=== PATIENT | male | born 1985 | race Two or more races ===

== ENCOUNTER 2016-11-28 13:08 | Emergency (ER) | payer OTHER ==
[~2016-11-28] VITALS: Ht 185.4 cm; Wt 84.4 kg
--- NOTE | 2016-11-28 13:18 | NUR ---
pt ambulatory to er bed 12. denies any medical complaint at this time. stating "i just want to see a psych social worker." denies SI/HI. pt is aao. cooperative. awaiting md brennan.
--- NOTE | 2016-11-28 13:28 | NUR ---
qasim at bedside for eval.
[2016-11-28 14:01] LABS: HEMATOCRIT 44 % (39-51); MEAN CORPUSCULAR HEMOGLOBIN 30 PG (26.0-33.0); MEAN CORPUSCULAR VOLUME 90 fL (80-96); RED BLOOD CELL COUNT(AUTO) 4.93 MIL/uL (4.5-6.0); WHITE BLOOD COUNT (AUTO) 4.4 K/uL (4.3-11.0)
[2016-11-28 14:02] LABS: BASOPHILS % (AUTO) 0.6 % (0.0-2.0); EOSINOPHILS % (AUTO) 0.6 % (0.0-6.0); LYMPHOCYTES # (AUTO) 1.2 /CMM (0.8-4.8); LYMPHOCYTES % (AUTO) 27.8 % (20.0-44.0); MEAN CORPUSCULAR HGB CONC 34 g/dl (31.0-36.0); MONOCYTES % (AUTO) 6.7 % (2.0-12.0); NEUTROPHILS # (AUTO) 2.8 /CMM (1.8-8.9); NEUTROPHILS % (AUTO) 64.3 % (43.0-81.0); PLATELET COUNT (AUTO) 228 /CMM (150-450); RDW COEFFICIENT OF VARIATION 12.5 (11.5-15.0)
[2016-11-28 14:03] LABS: MONOCYTES # (AUTO) 0.3 /CMM (0.1-1.30)
[2016-11-28 14:11] LABS: CALCIUM, SERUM 8.6 mg/dL (8.5-10.1); CARBON DIOXIDE 29 mmol/L (21-32); CHLORIDE 104 mmol/L (98-107); CREATININE 1.2 mg/dL (0.6-1.3); GLUCOSE 104 mg/dL (74-106); POTASSIUM 3.8 mmol/L (3.5-5.1); SODIUM SERUM 141 mmol/L (136-145); UREA NITROGEN, BLOOD 15 mg/dL (7-18)
[2016-11-28 14:13] LABS: APPEARANCE,URINE Clear (CLEAR); BILIRUBIN,URINE Negative (NEGATIVE); BLOOD, URINE Trace-intact Ery/uL (NEGATIVE); COLOR,URINE Yellow (YELLOW); KETONES,URINE Negative (NEGATIVE); LEUKOCYTE ESTERASE ,URINE Negative (NEGATIVE); NITRITE, URINE Negative (NEGATIVE); PH,URINE 6.5 (5.0-8.0); PROTEIN,URINE Negative (NEGATIVE); UGLUCOSE Negative (NEGATIVE)
[2016-11-28 14:20] LABS: BACTERIA,URINE Rare /HPF (None Seen); SQUAMOUS EPITHELIAL CELL,UR Rare /HPF (None Seen); WBC,URINE 0-2 /HPF (0-3)
[2016-11-28 14:25] LABS: ALANINE AMINOTRANSFERASE 16 U/L (12-78); ALKALINE PHOSPHATASE 106 U/L (46-116); ASPARTATE AMINOTRANSFERASE 20 U/L (15-37); BILIRUBIN,DIRECT 0.1 mg/dL (0.0-0.2); BILIRUBIN,TOTAL 0.5 mg/dL (0.2-1.0); SALICYLATE 0.6 mg/dL (2.8-20.0); TOTAL PROTEIN, SERUM 7.2 g/dL (6.4-8.2)
[2016-11-28 14:26] LABS: ACETAMINOPHEN 0 ug/ml (10-30); ALCOHOL, BLOOD < 3 mg/dL (0-0)
--- NOTE | 2016-11-28 14:33 | NUR ---
CALLED [facility] FOR PSYCH EVAL, ETA 1 HOUR
--- NOTE | 2016-11-28 15:32 | NUR ---
ry rn at bedside for psych eval.
--- NOTE | 2016-11-28 16:00 | NUR ---
medically and psych cleared. Patient discharged to home in stable condition. Written and verbal after care instructions given. Patient verbalizes understanding of instruction.
[2016-11-28 16:02] VITALS: BP 128/67
== END 2016-11-28 16:03 | disposition home or self-care (01) ==
LOC: ER 13:10
DX: F29 Unspecified psychosis not due to a substance or known physiological condition (principal)
CPT/HCPCS: 36415; 80048; 80076; 80305; 80329; 81001; 85025; 99284; A4606; G0480 ×2; Z7610; 81000-TC; G6039-TC

== ENCOUNTER 2016-12-05 07:01 | Emergency (ER) | payer OTHER ==
[~2016-12-05] VITALS: Ht 175.3 cm; Wt 68.0 kg
[2016-12-05 07:18] VITALS: BP 135/77
--- NOTE | 2016-12-05 07:51 | NUR ---
PT [facility] BEFORE BEING SEEN
--- NOTE | 2016-12-05 07:54 | NUR ---
DENIES HI AND SI
== END 2016-12-05 07:53 | disposition left against medical advice (07) ==
LOC: ER 07:02
DX: Z53.21 Procedure and treatment not carried out due to patient leaving prior to being seen by health care provider (principal)
CPT/HCPCS: A4606; Z7610

== ENCOUNTER 2017-08-27 23:13 | Emergency (ER) | payer OTHER ==
--- NOTE | 2017-08-27 23:16 | NUR ---
CALLED X5; NO ANSWER. AWOL FROM WAITING ROOM.
== END 2017-08-28 00:07 | disposition left against medical advice (07) ==
LOC: ER 23:18
DX: Z53.21 Procedure and treatment not carried out due to patient leaving prior to being seen by health care provider (principal)
CPT/HCPCS: Z7610